=== PATIENT | male | born 1965 | race African-American/Black ===

== ENCOUNTER 2019-01-17 13:46 | Inpatient (IN) | payer MEDICAID ==
[~2019-01-17] VITALS: Ht 182.9 cm; Wt 78.0 kg
--- NOTE | 2019-01-17 13:57 | NUR ---
EKG IN PROGRESS.
--- NOTE | 2019-01-17 14:12 | NUR ---
PLACED IN BED 11 FOR EVAL.
--- NOTE | 2019-01-17 14:12 | NUR ---
MULTIPLE ATTEMPTS MADE TO CHECK PT'S BS WITH MULTIPLE ACCUCHECK MACHINES CONTINUES TO READ "BAD SAMPLE".
--- NOTE | 2019-01-17 14:20 | NUR ---
PT RESTING IN BED, AAOX4 WITH C/O 10/10 GENERALIZED ABD PAIN X 2 WEEKS S/P UNCONTROLLED HICCUPING. PT WITH HX OF UNCONTROLLED HICCUPING. PER SISTER AT BEDSIDE, PT WAS SEEN AT HER CLINIC AND RECEIVED A MUSCULE RELAXER INJECTION THAT HELDED FOR A FEW DAY BUT MADE PT CONSTIPATED SO PT HAD TO TAKE OTC STOOL SOFTNERS TO ASSIST WITH BM. PT DENIES ANY FEVER/CHILLS, RESP ILLNESS OR URINARY PROBLEMS AT THIS TIME. PT ON MONITOR.
--- NOTE | 2019-01-17 14:45 | NUR ---
PT WITH EPISODE OF N/V WITH NOTED COFFEE GROUND EMESIS.
[2019-01-17 15:10] LABS: CARBON DIOXIDE 32.4 mmol/L (21-32); CHLORIDE SERUM 89 mmol/L (98-107); CREATININE SERUM 1.1 mg/dL (0.7-1.3); GFR1 > 60 mL/min; GLUCOSE SERUM 217 mg/dL (74-106); POTASSIUM SERUM 3.3 mmol/L (3.5-5.1); SODIUM SERUM 130 mmol/L (136-145)
[2019-01-17 15:19] LABS: ALBUMIN 3.8 g/dL (3.4-5.0); ALKALINE PHOSPHATASE 124 U/L (46-116); BILIRUBIN TOTAL 1.54 mg/dL (0.20-1.00); TOTAL PROTEIN, SERUM 7.6 g/dL (6.4-8.2)
[2019-01-17 15:34] LABS: RED CELL DISTRIBUTION WIDTH 16.9 % (11.5-14.5)
[2019-01-17 15:36] LABS: PLATELET COUNT 15 x10^3mcL (130-400)
--- NOTE | 2019-01-17 15:40 | NUR ---
LACTIC ACID 4.9 , DR BORREGO AWARE.
--- NOTE | 2019-01-17 15:41 | NUR ---
US AT BEDSIDE FOR EXAM.
[2019-01-17 15:47] LABS: ALT/SGPT 6001 U/L (16-63); AST/SGOT 4850 U/L (15-37)
[2019-01-17 16:01] LABS: BAND NEUTROPHIL 2 % (0-10); MONOCYTE 4 % (0-7); SEGMENTED NEUTROPHILS 79 % (37-75)
[2019-01-17 16:03] LABS: rbc morphology (normal/abnorm) ABNORMAL (NORMAL)
[2019-01-17 16:04] LABS: PLATELET MORPHOLOGY PLATELETS DECREASED; ovalocyte/elliptocyte 1+
--- NOTE | 2019-01-17 16:16 | NUR ---
PT STILL WITH C/O 10/10 PAIN AND PERSISTANT N/V. DR BORREGO MADE AWARE. SISTER AT BEDSIDE.
--- NOTE | 2019-01-17 17:18 | NUR ---
PT RESTING IN BED WITH EYES CLOSED AND BREATHS EVEN AND UNLABORED WITH NO SIGNS OF DISTRESS AT THIS TIME. SISTER AT BEDSIDE.
[2019-01-17] MEDS ORDERED: BACLOFEN20 MG PO (17:52)
[2019-01-17] MEDS ORDERED: METFORMIN HYDR500 M1 PO (17:53)
[2019-01-17] MEDS ORDERED: LIPITOR40 MG PO (17:53)
[2019-01-17] MEDS ORDERED: ASPIR 8181 MG PO (17:54)
[2019-01-17] MEDS ORDERED: HCTZ/LISINOPRIL1 TAB PO (17:54)
[2019-01-17 18:03] LABS: MAGNESIUM 2.3 mg/dL (1.8-2.4); PHOSPHOROUS 2.9 mg/dL (2.5-4.9)
[2019-01-17 18:06] LABS: T3 TOTAL 0.69 ng/mL
[2019-01-17 18:12] LABS: FREE T4 1.28 ng/dL (0.76-1.46); FREE THYROXINE INDEX 3.4 ug/dL (1.4-4.5); T4(THYROXINE) 9.7 ug/dL (4.7-13.3)
--- NOTE | 2019-01-17 18:27 | NUR ---
REPORT CALLED TO ICU NURSE MARV
[2019-01-17 18:29] LABS: UA SPECIFIC GRAVITY 1.025 (1.005-1.035); microscopic required? YES; urine erythrocyte NEGATIVE (NEGATIVE)
--- NOTE | 2019-01-17 18:35 | NUR ---
PATIENT ARRIVED AT THIS TIME. PATIENT IS ALERT AND ORIENTED X 4. PATIENT IS ON ROOM AIR, BREATHING ADEQUATELY WITH NO DISTRESS NOTED. PATIENTS VITALS: B/P: 179/102 MAP: 136, HR: 95, RR: 14 TEMP: 98.2. IV ACCESS NOTED TO L HAND. SKIN INTACT. SISTER AT BEDSIDE. ORIENTED PATIENT TO ROOM, CALL LIGHT WITHIN REACH, WILL ENDORSE ADMIT TO ONCOMING NURSE.
[2019-01-17 18:42] LABS: AMPHETAMINE QUAL UR NONE DETECTED (See below)
--- NOTE | 2019-01-17 18:57 | NUR ---
NOTICED THAT PLTS WHERE ORDERED FOR PATIENT AT 1543. CALLED ER NURSE, EMIL TO VERIFY IF GIVEN. PER EMIL THEY WERE NOT GIVEN EMIL STS THAT SHE WAS NOT THE NURSE IN CHARGE. PER SANTOS STEIN SHE SPOKE WITH SANTOS ROMERO, AND NICK SAID THAT SHE "FORGOT". WILL ENDORSE TO NIGHT NURSE.
--- NOTE | 2019-01-17 19:07 | NUR ---
REPORT GIVEN TO SANTOS HULL. ALL QUESTIONS ANSWERED, AND NOTIFIED OF PATIENTS PLTS ORDERED AND READY IN BLOOD BANK.
--- NOTE | 2019-01-17 19:10 | NUR ---
RECEIVED PT AND REPORT FROM KOKI GRAHAM. PT IN NO ACUTE DISTRESS, ATTACHED TO FULL NUTRITION INSTRUCTOR AND CONTINUOUS PULSE OXMETRY. DR. KEN AT [facility] FOR ASSESSMENT AND SPEAKING WITH PATIENT ON PLAN OF CARE. SEE NURSING ASSESSMENT AND ADMISSION FOR MORE DETAILS. BED AT LOWEST SETTING, CALL LIGHT WITHIN REACH, HOB ELEVATED 45 DEGREES PER PT COMFORT. WILL CONT TO MONITOR.
[2019-01-17 19:11] VITALS: BP 179/102
--- NOTE | 2019-01-17 19:55 | NUR ---
ONE UNIT OF PLATELET INITIATED AT THIS TIME, VERIFIED BY 2 RN'S. PRE VITALS TEMP 98.0, PULSE 97, NIBP 168/97, RESP 22, PO2 95%. PT EDUCATED ON S/S OF ADVERSE BLOOD TRANSFUSION REACTION AND TO NOTIFY NURSING TEAM OF ANY COMPLICATIONS. PT VERBALIZES UNDERSTANDING.
--- NOTE | 2019-01-17 20:10 | NUR ---
15 MIN PLATLET INFUSION VITALS: TEMP 98.1, PULSE 100, NIBP 151/84, RESP 24, PO2 95%. PT HAS NO S/S OF ANY BLOOD TRANSFUSION REACTION AND DENIES ANY COMPLICATIONS. TITRATED PER HOSPITAL PROTOCOL.
--- NOTE | 2019-01-17 20:45 | NUR ---
PER DR. KEN, CONTACT POISIN CONTROL DUE TO PT'S REPORT OF TAKING TYLENOL (ACETAMINOPHEN) 1G EVERY 2 HOURS THESE LAST 2 DAYS FOR PT'S ABD PAIN. PT REPORTS TAKING LAST DOSE OF TYLENOL YESTERDAY AROUND 2-3 AM. UPDATED POISIN CONTROL RAKER BUFFING WHEEL CAROL ON PT'S LFT, LABS, AND INR AND SYMPTOMS OF N/V/D AND ABD PAIN. PER CAROL RECOMMENDATION, INITIATE LOADING DOSE OF MUCOMYST 140 MG/KG AND 70 MG/KG FOR MAINTENANCE DOSE, AND GOAL IS LFT TO NO LONGER RISE AND INR'S TO REACH LESS THAN 2, AND TYLENOL LAB IS NEGATIVE. ALL INFORMATION RELAYED TO DR. KEN. PER DR. KEN, HE WILL ORDER MUCOMYST.
--- NOTE | 2019-01-17 21:18 | NUR ---
LAB CALLED, ACETAMINOPHEN LAB IS 338.6. DR. KEN MADE AWARE VIA TELEPHONE. PER DR. KEN HE WILL INFORM PHARMACY TO MIX MUCOMYST IV
--- NOTE | 2019-01-17 21:46 | NUR ---
IV INITIATED TO RIGHT HAND 22G, PORT PATENT, +BLOOD RETURN, NO S/S OF INFILTRATION, DRESSING CDI. SALINE LOCKED.
--- NOTE | 2019-01-17 21:50 | NUR ---
ACETYLCYSTEINE, MUCOMYST IV SOLUTION INITATED AT THIS TIME MIXED BY PHARMACY, AND ADMINISTERED PER EMAR @ 250 CC/HR.
--- NOTE | 2019-01-17 22:18 | NUR ---
2 LPM NASAL CANNULA PLACED ON PATIENT, PT SATURATING @ 90%. PT DENIES ANY SOB OR TROUBLE BREATHING. PT RR=29-32. PT NOW SATURATING @ 96%. WILL CONT TO CLOSELY MONITOR.
--- NOTE | 2019-01-17 22:35 | NUR ---
SLATE SPLITTERAMANDEEP BAKER AT BEDSIDE FOR BLOOD DRAW.
--- NOTE | 2019-01-17 23:27 | NUR ---
PLATELET INFUSION FINISHED AT THIS TIME. TEMP 98.1 PULSE 110, NIBP 101/61, RESP 29, PO2 96%. PT SHOWS NO S/S OF ANY ADVERSE BLOOD TRANSFUSION REACTION.
--- NOTE | 2019-01-17 23:35 | NUR ---
ACYTELCYSTEIN GTT MAINTENANCE DOSE INITATED AT THIS TIME PER EMAR @ 125 ML/HR.
--- NOTE | 2019-01-17 23:40 | NUR ---
SPOKE WITH ALDO FROM POISION CONTROL, UPDATED HIM ON PT'S STATUS AND MUCOMYST IV'S TAHT ARE ORDERED PER EMAR. PER ALDO HE WILL CALL IN MORNING TO FOLLOW UP. NO RECOMMENDATIONS AT THIS TIME.
--- NOTE | 2019-01-17 23:50 | NUR ---
DR. CHRISTIANSON MADE AWARE OF PT'S TROPONIN OF 0.508.
[2019-01-17 23:53] VITALS: BP 104/57
[2019-01-18] VITALS (8 sets, daily range): BP systolic 122–140; BP diastolic 62–82
--- NOTE | 2019-01-18 03:19 | NUR ---
MUCOMYST GTT MAINTENANCE DOSE INITATED @ 62.5 ML/HR.
--- NOTE | 2019-01-18 05:01 | NUR ---
PLODDER OPERATOR OLIVIA AT BEDSIDE FOR AM BLOOD DRAW.
[2019-01-18 05:22] LABS: BASOPHIL % 0.3 % (0-2)
[2019-01-18 05:32] LABS: PLATELET COUNT 24 x10^3mcL (130-400); RED CELL DISTRIBUTION WIDTH 17.3 % (11.5-14.5)
--- NOTE | 2019-01-18 06:08 | NUR ---
DR. ALBRIGHT AT [facility] FOR ASSESSMENT. SPEAKING WITH PT ON PLAN OF CARE
--- NOTE | 2019-01-18 06:09 | NUR ---
DR. ALBRIGHT MADE AWARE OF PTS ACETEMINOPHEN LAB OF 147.4 AT BEDSIDE.
[2019-01-18 06:10] LABS: ALBUMIN 2.5 g/dL (3.4-5.0); ALKALINE PHOSPHATASE 101 U/L (46-116); CALCIUM 7.1 mg/dL (8.5-10.1); CARBON DIOXIDE 27.8 mmol/L (21-32); CHLORIDE SERUM 99 mmol/L (98-107); CREATININE SERUM 1.2 mg/dL (0.7-1.3); GFR1 > 60 mL/min; GLUCOSE SERUM 136 mg/dL (74-106); POTASSIUM SERUM 3.1 mmol/L (3.5-5.1); SODIUM SERUM 135 mmol/L (136-145); TOTAL PROTEIN, SERUM 5.3 g/dL (6.4-8.2)
[2019-01-18 06:16] LABS: MAGNESIUM 1.9 mg/dL (1.8-2.4); PHOSPHOROUS 1.6 mg/dL (2.5-4.9)
--- NOTE | 2019-01-18 06:19 | NUR ---
LAB CALLED, TROPININ 2.325, DR. ALBRIGHT MADE AWARE OF PTS TRENDING LAB. PER DR. ALBRIGHT SHE WILL ORDER STAT EKG AND CONSULT DR. BARAKAT.
--- NOTE | 2019-01-18 06:20 | NUR ---
PT IN NO ACUTE DSITRESS, DENIES SOB. AWAKE/ALERT AT THIS TIME. PT DENIES ANY CHEST PAIN OR PAIN WHEN ASKED AT THIS TIME. PT DENIES ANY N/V. LEFT HAND AND RIGHT HAND IV'S PATENT, NO S/S OF INFILTRATION, DRESSING CDI. MUCOMYST GTT INFUSING @ 62.5 ML/HR AND NS INFUSING @ 100 ML/HR. WILL CONT TO MONITOR. BED AT LOWEST SETTING, CALL LIGHT WITHIN REACH, HOB ELEVATED 30 DEGREES.
--- NOTE | 2019-01-18 06:25 | NUR ---
PT REPORTING HE DOES NOT WANT THE NASAL CANNULA ON. PT EDUCATED ON OXYGEN THERAPY. REMOVED NASAL CANNULA AT THIS TIME. PT NOW SATURATING @ 95%, DENIES SOB.
[2019-01-18 06:28] LABS: AST/SGOT 5126 U/L (15-37)
[2019-01-18 06:29] LABS: ALT/SGPT 7177 U/L (16-63)
--- NOTE | 2019-01-18 06:56 | NUR ---
DR. ALBRIGHT MADE AWARE OF PT'S POTASSIUM OF 3.1
--- NOTE | 2019-01-18 07:12 | NUR ---
GAVE REPORT TO SANTOS DANIELLE. UPDATES GIVEN, QUESTIONS ANSWERED. ENDORSED CARE.
--- NOTE | 2019-01-18 07:15 | NUR ---
RC'D PT RESTING IN BED WITH NO APPARENT S/S OF DISTRESS. PT AWAKE/ALERT. PT A/A/O/X4, SPEECH CLEAR AND APPROPRIATE. PT DENIES EMMANUEL/DIZZINESS. PT RESPONDS TO VERBAL COMMANDS AND ABLE TO MAKE NEEDS KNOWN. PUPILS 3MM AND BRISK BILAT. NO EENT DRAINAGE NOTED. RESP E/U. LUNGS CTA. PT ON RA, DENIES SOB. SPO2 94%, NO RESP DISTRESS NOTED. PT INT ON/OF 2L O2 VIA NC. SINUS TACH ON VITICULTURIST. PT DENIES CP. PALP PULSES, NO EDEMA NOTED CAP REFILL <3. SKIN WARM TO TOUCH AND CONSISTENT WITH ETHNICITY. NS INFUSING @100. ACETADOTE INFUSING @62.5ML/HR. PT AMBULATORY, BEDREST AT THIS TIME. CLEAR LIQUID DIET, PT DENIES N/V. ABDOMEN ROUND AND TENDER TO TOUCH. HYPOACTIVE BS. PT VOIDS FREELY, DENIES BURNING. SKIN W/D/I. BED IN LOWEST POSITION. WILL CONT TO MONITOR
--- NOTE | 2019-01-18 09:00 | NUR ---
AM MEDICATIONS GIVEN. PT TOLERATED WELL. RESP E/U. ON RA, DENIES SOB. PT DENIES EXCESSIVE PAIN AT THIS TIME. FAMILY PRESENT AT BEDSIDE. WILL CONT TO MONITOR
--- NOTE | 2019-01-18 09:30 | NUR ---
DR ROGERS PRESENT AT BEDSIDE DISCUSSING POC WITH PT. UPDATED ON PT CURRENT STATUS AT THIS TIME. PER DR ROGERS, HOLD LUNCH TRAY FOR EGD THIS AFTERNOON. PT VERBALIZED AGREEMENT, WILL OBTAIN CONSENTS AT THIS TIME. AWAITING NEW ORDERS AT THIS TIME
--- NOTE | 2019-01-18 09:45 | NUR ---
DR SMALLS AND RESIDENTS AT BEDSIDE FOR MORNING ROUNDS. PATIENT PROVIDED UPDATE AND POC DISCUSSED. ALL QUESTIONS AND CONCERNS ADDRESSED.
--- NOTE | 2019-01-18 09:45 | NUR ---
DR SMALLS AND MED TEAM PRESENT AT BEDSIDE DISCUSSING POC. UPDATED ON PTS CURRENT STATUS. AWAITING NEW ORDERS AT THIS TIME.
--- NOTE | 2019-01-18 10:44 | NUR ---
ATTEMPTED TO OBTAIN MEDICAL RECORDS FROM [facility] PER DR ROGERS'S ORDERS. PER VIRDEN, THEY DO NOT FAX INFORMATION MUST BE EMAILED. CASE MANAGEMENT CHARAN COOMBS CALLED AND PROVIDED WITH INFORMATION. CHRAAN COOMBS TO F/U
--- NOTE | 2019-01-18 11:27 | NUR ---
IV ATTEMPT FOR 20G IV UNSUCCESSFUL, PT REPORTS "I'M A REALLY HARD STICK. THEY TRIED IN ER ALOT". CT CALLED AND NOTIFIED UNSUCCESSFUL ATTEMPT. PER DINA, AWAITING NURSE AND WILL COME TO SEE PT
--- NOTE | 2019-01-18 11:30 | NUR ---
DR BARAKAT AT BEDSIDE DISCUSSING POC WITH PT. UPDATED ON PT CURRENT STATUS. ALL QUESTIONS AND CONCERNS ADDRESSED. NO NEW ORDERS AT THIS TIME
--- NOTE | 2019-01-18 12:04 | NUR ---
ADMINISTRATIVE SERVICES SPECIALIST PRESENT AT BEDSIDE FOR BLOOD DRAW
--- NOTE | 2019-01-18 12:20 | NUR ---
TEMP 99.9, COOLING MEASURES IN PLACE. WILL CONT TO MONITOR
[2019-01-18 12:48] LABS: BILIRUBIN DIRECT 1.17 mg/dL (0.0-0.2); BILIRUBIN TOTAL 2.1 mg/dL (0.20-1.00)
[2019-01-18 12:49] LABS: ALBUMIN 2.5 g/dL (3.4-5.0); TOTAL PROTEIN, SERUM 5.2 g/dL (6.4-8.2)
--- NOTE | 2019-01-18 13:15 | NUR ---
RECEIVED TELEPHONE CALL FROM POISON CONTROL. PATIENT UPDATE PROVIDED INCLUDING MOST RECENT ACETAMINPOHEN LEVEL AT 90.6. CONTINUE WITH CARE PER POISON CONTROL AND THEY WILL RETURN CALL TO UNIT AT A LATER TIME.
--- NOTE | 2019-01-18 13:26 | NUR ---
PT HAD LOOSE DARK BROWN BM. PT CLEANED AND ASSISTED BACK TO BED
--- NOTE | 2019-01-18 13:30 | NUR ---
DR ROGERS AND TEAM PRESENT AT BEDSIDE FOR NEGD AT THIS TIME. WILL CONT TO XENIA
--- NOTE | 2019-01-18 14:12 | NUR ---
Discount pharmacy card and list to low cost medical clinics given to patient by Osvaldo Hernandez.
[2019-01-18 14:43] LABS: PLATELET COUNT 39 x10^3mcL (130-400)
[2019-01-18 14:44] LABS: BASOPHIL % 0.2 % (0-2); PATH REVIEW for HEMA NO
--- NOTE | 2019-01-18 15:01 | NUR ---
LABETALOL 5MG IVP GIVEN PER DR ROGERS VERBAL ORDER FOR BP/HR. WILL CONT TO MONITOR VS CLOSELY
--- NOTE | 2019-01-18 18:26 | NUR ---
PT RESTING IN BED WITH NO APPARENT S/S OF DISTRESS. PT ON 2L O2 VIA NC, DENIES SOB. SPO2 98%. NO RESP DISTRESS NOTED. SINUS TACH ON MONITOR. PT DENIES CP. PT AMBULTORY TO BSC. PT TOLERATED CLEAR LIQUID DIET. DENIES N/V. IVS PATENT AND INTACT. NS INFUSING @ 100. PROTONIX INFUSING @10. ACETADOTE INFUSING @ 62.5. BED IN LOWEST POSITION. CALL LIGHT IN REACH. WILL CONT TO MONITOR
[2019-01-18 18:57] LABS: BASOPHIL % 0.3 % (0-2)
[2019-01-18 19:01] LABS: RED CELL DISTRIBUTION WIDTH 17.1 % (11.5-14.5)
[2019-01-18 19:06] LABS: PLATELET COUNT 46 x10^3mcL (130-400)
[2019-01-18 19:32] LABS: BILIRUBIN DIRECT 1.34 mg/dL (0.0-0.2); BILIRUBIN TOTAL 2.26 mg/dL (0.20-1.00)
[2019-01-18 19:54] LABS: ALBUMIN 2.8 g/dL (3.4-5.0); TOTAL PROTEIN, SERUM 5.9 g/dL (6.4-8.2)
--- NOTE | 2019-01-18 20:00 | NUR ---
PT AWAKE AND VERBALLY REPONSIVE. ABLE TO MAKE NEEDS KNOWN. SKIN WARM AND DRY TO TOUCH WITH 2+ EDEMAON BUE/NLE. SCD IN PLACE TO BLE TOLERATING WELL. PT HAS EPISODES OF LOOSE BOWEL MOVEMENT X1, PARTIAL BATH GIVEN, COMPLETE LINEN CHANGE, KEPT CLEAN AND DRY. IV ACCESS TO LEFT HAND ACCIDENTALLY PULLEDOUT BY PATIENT WITH MODERATE ACTIVE BLEEDING NOTED AT THE SITE. PRESSURE DRESSING APPLIED.IV ACCESS TO RAC INTACT AND PATENT.IVF NS AT 100ML/HR , PROTONIX DRIP IN PROGRESS VIA PERIPHERAL LINE AT THE [facility] TOLERATING WELL. ACETYLCYS DRIP TOTAL AMOUNT 1L COMPLETED. PT DENIES PAIN AT THIS TIME. WILL CONTINUE TO MONITOR.
[2019-01-19] VITALS (10 sets, daily range): BP systolic 142–186; BP diastolic 60–104
--- NOTE | 2019-01-19 00:24 | NUR ---
EYES CLOSED , APPARENTLY NO S/S OF PAIN/DISCOMOFRT.NO FACIAL GRIMACNG NOTED. VONTINUES ON PROTOMIX SRIP ORDERED VIA PERIPHERAL LINE AT THE RAC TOLERATING WELL.
[2019-01-19 00:53] LABS: ALBUMIN 2.5 g/dL (3.4-5.0); BILIRUBIN DIRECT 0.98 mg/dL (0.0-0.2); BILIRUBIN TOTAL 1.6 mg/dL (0.20-1.00); TOTAL PROTEIN, SERUM 5.4 g/dL (6.4-8.2)
--- NOTE | 2019-01-19 03:09 | NUR ---
ASSISTED TO BEDSIDE COMMODE, HAD 1 LOOSE STOOLBOWEL MOVEMENT MOSEATE AMOUNT. KEPT CLEAN AND DRY.
--- NOTE | 2019-01-19 04:20 | NUR ---
PAGED DR. SMALLS FOR CONSENT TO TRANSFER PATIENT UPSTAIRS. AWAITING CALL BACK.
--- NOTE | 2019-01-19 04:21 | NUR ---
LAB AT BEDSIDE FOR BLOOD DRAW.
--- NOTE | 2019-01-19 05:00 | NUR ---
CW=[id number], URV=[id number], DR THUY GARVIN GAVE ORDER AND NOTED.HYDRALAZIN 10MG IVP PRN MEDICATION.WILL REASSESS PT.
[2019-01-19 05:16] LABS: PLATELET COUNT 48 x10^3mcL (130-400)
[2019-01-19 05:17] LABS: CALCIUM 7.3 mg/dL (8.5-10.1); CARBON DIOXIDE 27.2 mmol/L (21-32); CHLORIDE SERUM 102 mmol/L (98-107); CREATININE SERUM 1.3 mg/dL (0.7-1.3); GFR1 > 60 mL/min; GLUCOSE SERUM 135 mg/dL (74-106); MAGNESIUM 1.9 mg/dL (1.8-2.4); POTASSIUM SERUM 3.4 mmol/L (3.5-5.1); SODIUM SERUM 137 mmol/L (136-145)
--- NOTE | 2019-01-19 05:30 | NUR ---
PT FOUND STANDING UP HOLDING A MARJ TO HIS ARM STATING TELL THE VOICES TO STOP TALKING TO HIM, AND IF I HEAR THEM. HE CONTINUED TO STATE THAT HE HEARD THE VOICES OF HIS SISTER AND DAUGHTER. HE PULLED OUT HIS IV AND PULLED OFF ALL MONITORING LINES. HE HAD ALSO CALLED HIS SISTER STATING THAT HE WAS "GOING CRAZY". PT THEN SNAPPED OUT OF IT AND STARTED TO APOLOGIZE, SAYING THAT HE JUST HAD A PSYCHIATRIC BREAKDOWN. WILL CONTINUE TO CLOSELY MONITOR.
[2019-01-19 05:31] LABS: BAND NEUTROPHIL 1 % (0-10); MONOCYTE 1 % (0-7); SEGMENTED NEUTROPHILS 88 % (37-75)
[2019-01-19 05:33] LABS: PLATELET MORPHOLOGY PLATELETS DECREASED; acanthocyte (spur cell) 1+; rbc morphology (normal/abnorm) ABNORMAL (NORMAL)
[2019-01-19 05:38] LABS: BILIRUBIN TOTAL 1.7 mg/dL (0.20-1.00)
[2019-01-19 05:41] LABS: ALBUMIN 2.8 g/dL (3.4-5.0); TOTAL PROTEIN, SERUM 5.2 g/dL (6.4-8.2)
[2019-01-19 06:09] LABS: BILIRUBIN DIRECT 0.95 mg/dL (0.0-0.2)
--- NOTE | 2019-01-19 06:10 | NUR ---
NEW IV STARTED TO HIS LEFT HAND 22G. PATENT, DRESSING CDI.
--- NOTE | 2019-01-19 06:48 | NUR ---
PHARMACY NOTIFIED OF PYXIS OUT OF ZOSYN AND UNABLE TO MAKE DUE MEDICATION. PHARMACY NOTIFIED THAT DOSAGE TIME WILL BE CHANGED TO 0800.
--- NOTE | 2019-01-19 06:49 | NUR ---
NEW ORDER OF ZOSYN IV , NOT AVAILABLE AT THE [facility], PHAEMACY MADE AWARE,WILL CHANGE THE INITIAL DOSE T0 0800AM.WILL ENDORSE TO INCOMING SHIFT.
--- NOTE | 2019-01-19 06:58 | NUR ---
PT APPARENTLY GOT CONFUSED, PULLEDOUT IVACCESS X3, SISTER MADE AWARE, TAYOL SAYEEDMADE AWAREOF PT'S BEHAVIORAT THIS TIME.
--- NOTE | 2019-01-19 07:01 | NUR ---
DR ALBRIGHT ORDERED AMMONIA LEVEL, LAB REQUESTED.SISTER AT BEDSIDE AT THIS TIME. IV ACCESS PULLED OUT BY PATIENT, TRIED TO START NEW IV ACCESS, UNABLEWITH POOR VENOUS ACCESS.
--- NOTE | 2019-01-19 07:30 | NUR ---
RCD REPORT FROM SANTOS REESE. CHARGE NURSE TALKING WITH FAMILY MEMBERS. PATIENT AWAKE, NO DISTRESS NOTED AT THIS TIME. PER REPORT, PATIENT PULLED OUT SEVERAL IVs IN THE NIGHT, WAS CONFUSED. NO IV ACCESS AT THIS TIME. BED LOW, NEAR NURSE STATION, CALL LIGHT WITHIN REACH. WILL MONITOR.
--- NOTE | 2019-01-19 07:30 | NUR ---
SHIFT ASSESSMENT PERFORMED AND DOCUMENTED.
--- NOTE | 2019-01-19 08:15 | NUR ---
IV TO LEFT FOREARM PLACED PATIENT WITH NO IV ACCESS, 22 GAUGE, PATIENT TOLERATED WELL. FAMILY AT BEDSIDE. NS RESTARTED PER JUL.
--- NOTE | 2019-01-19 09:24 | NUR ---
PER DR ROGERS ORDER, IVF TITRATED FROM 100 ML/HR TO 10 ML/HR.
--- NOTE | 2019-01-19 11:39 | NUR ---
DR SOTO BEDSIDE TO ASSESS PATIENT. UPDATES PROVIDED BY NURSING.
--- NOTE | 2019-01-19 11:50 | NUR ---
SPOKE WITH ELSI FROM POISON CONTROL. PATIENT UPDATE PROVIDED. CONTINUE WITH CURRENT TREATMENT INCLUDING ACETAMINOPHEN LEVELS. ELSI STATED THAT SHE WILL RETURN PHONE CALL AND IDF ANY INFORMATION IS NEEDED TO CONTACT POISON CONTROL .
--- NOTE | 2019-01-19 12:11 | NUR ---
SHIFT ASSESSMENT PERFORMED AND DOCUMENTED. NS 10 ML/HR TO LFA WITHOUT COMPLICATIONS. MOTHER AT BEDSIDE. WILL MONITOR. BED LOW, CALL LIGHT WITHIN REACH.
[2019-01-19 12:25] LABS: BILIRUBIN DIRECT 1.24 mg/dL (0.0-0.2); BILIRUBIN TOTAL 1.7 mg/dL (0.20-1.00)
[2019-01-19 12:42] LABS: ALBUMIN 2.6 g/dL (3.4-5.0); TOTAL PROTEIN, SERUM 5.2 g/dL (6.4-8.2)
--- NOTE | 2019-01-19 13:24 | NUR ---
1. Recommend CCHO (full liquid diet). Discussed recommendations with Dr. Mcgill
--- NOTE | 2019-01-19 13:24 | NUR ---
Initial Nutrition Assessment: IC03 VÍCTOR BALBUENA HEMON IA HR Dx: Septic shock, acute cholecystitis PMHx: DM, HTN PSHx: None Labs: K 3.4L, ALB 2.8L, AST 3453H, ALT 7302H, P 2.0L, A1C 7.3H, Ammonia 62H, HGB 10.8L Meds: Ativan, cephulac, D 50%, K-Phos neutral, Lopressor, Zofran, zosyn Diet: Full liquid PO Intake: (01/18) breakfast 40%, dinner 60% Ht: 182.88 cm (72") Wt: 78.1 kg (172#) BMI: 23.4 kg/m2 Bed scale: 78.1 kg IBW: 178# (81 kg) %IBW: 97 UBW: 172-175# Age: 53/M Food Allergies: NKFA Skin: intact Dominick: 19 Edema: +2 BUE/BLE GI: Last BM: 01/19 Per H&P, Pt is a 53 Yo male with PMH of DM and HTN who came to the ED from home for worsening abdominal pain and eructation for [address] weeks[address] RDN Visit (01/19): Patient was alert and oriented but was having lot of hiccups that was making him feel nauseated. Patient said that he ate most of his breakfast this morning. Patient was very uncomfortable because of hiccups. Problem with: N/V/D/C: nausea Problems with: Chewing/Swallowing: none Current appetite: good Recent wt change: lost some weight bit does not know how many lbs %wt change: n/a Vitamin/Supplement use: no Special diet at home: regular Physical activity: none Nutrition education given: not provided as patient was feeling nauseated and was having hiccups. Food-drug interactions: none Education given: n/a Estimated Nutritional Needs Based on current body weight 78.1 kg Energy: 4092-1592 kcal/d (25-30 kcal/kg) Protein: 94-109 g/d (1.2-1.4g/kg)- sepsis Fluid: 3001-2455 ml/d (1 ml/kcal) or per doctor Nutrition Diagnosis 1. Inadequate oral intake related to nausea as evidenced by documented PO <75%. 2. Impaired nutrient utilization related to hepatic/gall bladder dysfunction as evidenced by ammonia: 62 Intervention 1. Recommend CCHO (full liquid diet). Discussed recommendations with Dr. Mcgill Monitor/Evaluate Goal: PO intake at least 75% of estimated needs Monitor: PO intake, Labs, GI function F/U in 2-3 days as high risk 01/21-
--- NOTE | 2019-01-19 14:57 | NUR ---
ASSISTED PATIENT TO BED SIDE COMMODE AND THEN PATIENT ASSISTED BACK TO BED, NO DISTRESS NOTED. NO OTHER NEEDS AT THIS TIME.WILL MONITOR.
--- NOTE | 2019-01-19 15:45 | NUR ---
PATIENT HAD BM BEFORE ABLE TO GET TO BEDSIDE COMMODE. ASSISTED PATIENT TO BSC. PROVIDED BED BATH, CLEAN LINENS AND GOWN. ASSISTED PATIENT BACK TO BED, POSITION OF COMFORT. NO OTHER NEEDS AT THIS TIME. WILL MONITOR.
--- NOTE | 2019-01-19 17:12 | NUR ---
SPOKE WITH DR. ALBRIGHT REGARDING PATIENT'S BP WHICH HAS HAD SEVERAL READINGS ABOVE 170 SYSTOLIC, CURRENTLY 161 SYSTOLIC. ALSO, PATIENT COMPLAINING OF 7/10 PAIN TO RIGHT RIBS. NO PAIN MEDICATIONS AVAILABLE ON JUL. PROVIDED PATIENT WITH ICE PACK. TO REVIEW PATIENT'S CHART AND ENTER ORDERS APPROPRIATE. WILL AWAIT ORDERS.
--- NOTE | 2019-01-19 17:22 | NUR ---
SHIFT ASSESSMENT PERFORMED AND DOCUMENTED. PATIENT WITH 7/10 ABDOMINAL PAIN, DR. RIDER AWARE. PROVIDED WITH ICE PACK. NS 10 ML/HR TO LFA WITHOUT COMPLICATIONS. FAMILY AT BEDSIDE. CALL LIGHT WITHIN REACH. BED LOW. WILL MONITOR.
--- NOTE | 2019-01-19 18:39 | NUR ---
TORADOL GIVEN PER MAR FOR PATIENT'S 6/10 PAIN TO RIBS AND ABDOMEN, HE FEELS IT IS MUSCULOSKELETAL TYPE OF PAIN. NO OTHER NEEDS AT THIS TIME. WILL MONITOR.
--- NOTE | 2019-01-19 19:03 | NUR ---
REPORT GIVEN TO SANTOS MCNALLY. PATIENT REPORTS PAIN IMPROVED TO RIBS AFTER TORADOL. PATIENT IN NO DISTRESS, NO NEEDS AT THIS TIME. NS 10 ML/HR TO LFA. BED LOW, CALL LIGHT WITHIN REACH. FAMILY AT BEDSIDE. CARE ENDORSED.
--- NOTE | 2019-01-19 19:53 | NUR ---
RECEIVED REPORT FROM SANTOS RODRIGUEZ. PT IS ALERT AND ORIENTED X4. PUPILS REACTIVE TO LIGHT. PT IS BREATHING E/U ON 2L NC. LUNG SOUNDS CLEAR TO BILATERAL UPPER LOBES, DIMINISHED TO BILATERAL LOWER LOBES. S1 S2 HEART SOUNDS AUSCULTATED. PULSES MODERATE X4. CAP REFILL <3 SECS X4. SKIN IS WARM AND CONSISTENT WITH ETHNICITY. PERIPHERAL IV TO LEFT FA PATENT, DRESSING CDI. NS KVO. ABD IS SOFT AND ROUNDED WITH ACTIVE BOWEL SOUNDS X4Q. PT VOIDS FREELY USING URINAL. ALL QUESTIONS AND CONCERNS ANSWERED.
--- NOTE | 2019-01-19 21:50 | NUR ---
ASSISTED PATIENT TO BEDSIDE COMMODE. HAD LIQUID BM.
[2019-01-20 05:29] LABS: RED CELL DISTRIBUTION WIDTH 17.3 % (11.5-14.5)
[2019-01-20 05:30] LABS: BASOPHIL % 0 % (0-2); PLATELET COUNT 54 x10^3mcL (130-400)
[2019-01-20 05:48] LABS: BILIRUBIN DIRECT 1.32 mg/dL (0.0-0.2); BILIRUBIN TOTAL 2.1 mg/dL (0.20-1.00)
[2019-01-20 05:51] LABS: ALBUMIN 2.6 g/dL (3.4-5.0); TOTAL PROTEIN, SERUM 5.3 g/dL (6.4-8.2)
--- NOTE | 2019-01-20 06:15 | NUR ---
DR. ALBRIGHT AT BEDSIDE FOR UPDATES. ALL QUESTIONS AND CONCERNS ANSWERED.
[2019-01-20 06:49] LABS: CALCIUM 7.3 mg/dL (8.5-10.1); CARBON DIOXIDE 28.6 mmol/L (21-32); CREATININE SERUM 1.4 mg/dL (0.7-1.3); POTASSIUM SERUM 3.5 mmol/L (3.5-5.1)
--- NOTE | 2019-01-20 07:10 | NUR ---
GAVE REPORT TO RELIEF NURSE. ALL QUESTIONS AND CONCERNS ANSWERED.
--- NOTE | 2019-01-20 07:20 | NUR ---
RECEIVED PT FROM СВЕТЛАНА RN. PT RESTING IN BED WITH BOTH EYES CLOSED. NO S/S OF ACUTE DISTRESS. NO SOB ON ROOM AIR. NO COMPLAINT OF CHEST PAIN. SPEECH CLEAR. FACE SYMMETRICAL. NO N/V. NO DIZZINESS. C/O INTERMITTENT HICCUPS. REPORTS INTEMRITTENT TOLERABLE RUQ ABD. PAIN WITH PALPATION. DECLINES TO PAIN MEDICATION. NO FEVER. NO CHILLS. NO EMMANUEL. PERRLA, BRISK, SIZE 3. IV WNL TO LFA, PATENT AND FLUSHES WELL. IV FLUIDS FLOWING. SITE WNL. PT CALM/COOPERATIVE. C/O FREQUENT BOWEL MOVEMENT, LOOSE/BROWN. NSR ON TELE. BED IN LOW POSITION. CALL LIGHT WITHIN REACH. INSTRUCTED TO USE CALL LIGHT TO CALL FOR ASSISTANCE PRN. VERBALIZED UNDERSTANDING. WILL CONTINUE TO MONITOR.
[2019-01-20 08:00] VITALS: BP 174/105
[2019-01-20 09:01] VITALS: Ht 182.9 cm; Wt 78.0 kg
--- NOTE | 2019-01-20 09:08 | NUR ---
BP ELEVATED, 185/84. DR. ALBRIGHT AWARE. NO COMPLAINT OF CP, NO PALPITATION, NO EMMANUEL. NO DIZZINESS. NO S/S OF ACUTE DISTRESS. PO BP MED GIVEN. O2 SAT 95% ON ROOM AIR. DENIES SOB. BED IN LOW POSITION. CALL LIGHT WITHIN REACH. WILL CONTINUE TO MONITOR.
[2019-01-20 09:40] VITALS: BP 154/80
--- NOTE | 2019-01-20 09:40 | NUR ---
DR. SMALLS AND RESIDENTS AT BEDSIDE DISCUSSING POC WITH PT. CONCERNS/QUESTIONS ANSWERED BY PHYSICIANS. PT AA/OX4. NO HICCUPS AT THIS TIME. NO SOB ON ROOM AIR. NO CHEST PAIN. CALM/COOPERATIVE. BP DECREASING, BP 154/80, HR 84. O2 SAT 94% ON ROOM AIR. BED IN LOW POSITION. CALL LIGHT WITHIN REACH. WILL CONTINUE TO MONITOR.
--- NOTE | 2019-01-20 09:55 | NUR ---
PATIENT ROUNDS WITH DR. SMALLS AND RESIDENTS. CHARGE NURSE AND PRIMARY NURSE AT BEDSIDE. UPDATES PROVIDED AND POC DISCUSSED. WILL CONTINUE TO MONITOR.
--- NOTE | 2019-01-20 11:00 | NUR ---
RECEIVED CALL FROM POISON CONTROL, SPOKE WITH ANGY AT , PER ANGY, CASE CLOSED.
[2019-01-20 12:19] VITALS: BP 165/94; BP 178/101
--- NOTE | 2019-01-20 12:45 | NUR ---
PT BEING TRANSFERRED TO [facility]. PT AA/OX4. NO COMPLAINT OF PAIN. NO SOB ON ROOM AIR. O2 SAT 94% ON ROOM AIR. VOIDS FREELY WITH URINAL. OUTPUT 400CC, CLEAR/YELLOW. HAD 5 BMS THIS SHIFT, LOOSE/GREEN. NO N/V. NO ABD. PAIN. TOLERATING CARDIAC DIET WELL. NO HICCUPS AT THIS TIME. PT CALM/COOPERATIVE. NO CHEST PAIN. BP 167/96, HR 85, ENDORSED TO SANTOS SCHWAB. BELONGINGS WITH PATIENT. TAKEN BY WHEELCHAIR.
--- NOTE | 2019-01-20 14:10 | NUR ---
DUE MEDS GIVEN AND TOLERATED WELL. IV FLUIDS REPLENSISHED. B/P 144/104 (122), HR 89. INDERAL PO GIVEN. PT DENIES PAIN AT THIS TIME. AT BEDSIDE. CALL LIGHT WITHIN REACH.
--- NOTE | 2019-01-20 16:36 | NUR ---
BLOOD SUGAR 121, NO INSULIN INDICATED.
[2019-01-20 17:19] VITALS: BP 133/80
--- NOTE | 2019-01-20 17:58 | NUR ---
PT SITTING UP IN BED EATING DINNER. DUE MEDS GIVEN AND TOLERATED WELL. PT DENIES PAIN AND DISCOMFORT. MOTHER ASSISTING PT WITH DINNER AT BEDSIDE. NO DISTRESS NOTED. CALL LIGHT WITHIN REACH.
--- NOTE | 2019-01-20 18:36 | NUR ---
PT IS AAOX4. RESP EVEN AND UNLABORED. NO DISTRESS NOTED. PT DENIES PAIN AT THIS TIME. TELE [address] READING NSR WITH INTERMITTENT PVCS. PT DENIES CP AND PRESSURE. IV CATH TO LFA N/S LOCKED, SITE WNL. WILL ENDORSE ALL CARE TO NOC RN.
[2019-01-20 19:25] VITALS: BP 152/85
--- NOTE | 2019-01-20 19:25 | NUR ---
RECEIVED PT AWAKE ALERT AND VERBALLY RESPONSIVE.BREATHING EVEN BUT VERBALIZED "HARD TO BREATH.FINE CRACKLES ON AUSCULTATION.TOLERATING ROOMAIR @ 93%.CO 8/10 TO ACHING PAIN.INFORMED PT ,WILL CALL MD CAUSE THERE IS NO ORDER FOR PAIN MEDS.INFORMED NURSE HE HAS SOME LIVER ISSUES PROBABLY THAT'S WHY MD ARE CAUTIOUS IN GIVING HIM PAIN MEDS."DON'T BOTHER CALLING THEM,I'LL BE OK".DENIES CHESTPAIN.BP 152/85 MMHG,HR 89.ON TELE # 6 WITH READING NSR WITH PAC'S /PVC'S.WILL CONTINUE TO MONITOR.
--- NOTE | 2019-01-21 05:05 | NUR ---
PT SLEPT WELL ALL NIGHT.NO ASE NOTED FROM ZOSYN IV ATB.DENIES ABDOMINAL PAIN.NO N/V NOTED.AMBULATED TO BR AND WELL TOLERATED.ALL NEEDS MET.WILL CONTINUE TO MONITOR.
[2019-01-21 06:22] VITALS: BP 172/100
[2019-01-21 06:55] LABS: MAGNESIUM 1.5 mg/dL (1.8-2.4)
[2019-01-21 07:01] LABS: ALKALINE PHOSPHATASE 109 U/L (46-116); AST/SGOT 454 U/L (15-37); BILIRUBIN TOTAL 2.58 mg/dL (0.20-1.00); CARBON DIOXIDE 31.4 mmol/L (21-32); CHLORIDE SERUM 97 mmol/L (98-107); GFR1 > 60 mL/min; GLUCOSE SERUM 117 mg/dL (74-106); POTASSIUM SERUM 3.2 mmol/L (3.5-5.1); SODIUM SERUM 136 mmol/L (136-145)
[2019-01-21 07:27] LABS: ALBUMIN 2.7 g/dL (3.4-5.0); ALT/SGPT 3445 U/L (16-63); TOTAL PROTEIN, SERUM 5.9 g/dL (6.4-8.2)
[2019-01-21 07:29] LABS: BASOPHIL % 0 % (0-2); PLATELET COUNT 74 x10^3mcL (130-400); RED CELL DISTRIBUTION WIDTH 17.6 % (11.5-14.5)
--- NOTE | 2019-01-21 07:30 | NUR ---
PT IS AAOX4. RESP EVEN, SHALLOW AND UNLABORED. LUNG SOUNDS DIMINISHED BILATERALLY. ON R/A. NO COUGH OR SOB NOTED. TELE [address] READING NSR WITH OCCASIONAL PVCS. ABDOMEN SOFT, TENDER UPON PALPATION. BOWEL SOUNDS ACTIVE X4. IV N/S LOCKED TO LFA. SITE WNL. SKIN CDI. PT HAS R ARM TRACE EDEMA. PT DENIES PAIN AT THIS TIME. CALL LIGHT WITHIN REACH. BED IN LOWEST POSTION.
--- NOTE | 2019-01-21 09:37 | NUR ---
DR. SMALLS AND MEDICAL TEAM MET WITH PT AND DISCUSSED POC. PT IS STILL SUFFERING FROM HICCUPS AND HAS ABDOMINAL PAIN UPON PALPATION. THORAZINE AND REGLAN WILL BE ORDERED. PT TO HAVE POSSIBLE HIDA SCAN. PT AGREED WITH POC.
[2019-01-21 09:45] VITALS: BP 177/102
[2019-01-21 11:55] VITALS: BP 174/95
--- NOTE | 2019-01-21 12:18 | NUR ---
PT'S B/P 174/95 (112), HR 73. PAGED DR. FRAIRE TO REPORT, AWAITING CALL BACK. DUE MEDS GIVEN AND TOLERATED WELL. BS 159, 3 UNITS REG INSULIN GIVEN. PT DENIES PAIN AND DISCOMFORT. PT'S HAS BEEN HAVING C/O OF HICCUPS SINCE 829. PT'S HICCUPS HAVE RESOLVED AT THIS TIME. CALL LIGHT WITHIN REACH.
--- NOTE | 2019-01-21 12:48 | NUR ---
PAGED DR. FRAIRE SECOND TIME IN REGARDS TO PT'S B/P OF 174/95 (112). AWAITING CALL BACK.
--- NOTE | 2019-01-21 13:25 | NUR ---
INDERAL 40 MG GIVEN, PT'S B/P 174/95 (112). PT DENIES H/A AND DIZZINESS. WILL CONTINUE TO MONITOR. CALL LIGHT WITHIN REACH.
--- NOTE | 2019-01-21 14:17 | NUR ---
PT'S B/P DECREASED TO 131/72 (91), HR 75. PT DENIES PAIN OR DISCOMFORT. CALL LIGHT WITHIN REACH.
[2019-01-21 14:18] VITALS: BP 131/72
[2019-01-21 16:28] VITALS: BP 139/79
--- NOTE | 2019-01-21 17:07 | NUR ---
BLOOD SUGAR 147, NO INSULIN INDICATED PER RISS. DUE MEDS GIVEN AND TOLERATED WELL. PT DENIES PAIN AT THIS TIME. CALL LIGHT WITHIN REACH.
--- NOTE | 2019-01-21 18:21 | NUR ---
REPORTED TO DR. LARKIN THAT PT HAS ABDOMINAL PAIN 10/10. DR. LARKIN ORDERED AT ONE TIME DOSE OF TORADOL. TORADOL 15MG IVP GIVEN FOR MID ABDOMINAL PAIN 10/01O. EXTRA FLUIDS ENCOURAGED. CALL LIGHT WITHIN REACH.
--- NOTE | 2019-01-21 18:45 | NUR ---
PT IS VISITING WITH FAMILY AT THIS TIME. RESP EVEN AND UNLABORED. PT STATES ABDOMINAL PAIN IS SUBSIDING 08/10. TELE [address] READING NSR WITH INTERMITTENT PVCS. IV CATH TO LFA IN PLACE, SITE WNL. NO S/S OF INFECTION OR INFILTRATION NOTED. CALL LIGHT WITHIN REACH. BED IN LOWEST POSTION. WILL ENDORSE ALL CARE TO NOC RN.
[2019-01-21 19:45] VITALS: BP 130/77
--- NOTE | 2019-01-21 19:45 | NUR ---
RECEIVED REPORT FROM DAY SHIFT NURSE. PT IS A/O X4. FAMILY IS AT BEDSIDE. PT DENIES ANY PAIN AT THIS TIME. TELE #6 READING NSR WITH PVCS & PACS. BP 130/77 HR 77. DENIES CP. PULSES ARE MODERATE AND EQUAL ON ALL EXTREMITIES. THERE IS SLIGHT SWELLING ON BILATERAL UPPER ARMS WITH TRACE EDEMA. BREATHING IS EVEN AND UNLABORED ON RA SAT02 OF 97%. PT DENIES SOB AT THIS TIME. BS ARE ACTIVE IN ALL 4Q. ABD IS SOFT AND ROUND. LAST BM WAS TODAY WITH A SOFT CONSISTENCY. BRP. AMBULATORY. SKIN IS INTACT. IV TO THE RFA 22G. IV IS PATENT AND INTACT. NO REDNESS OR SWELLING. CALL LIGHT WITHIN REACH. BED IN LOWEST POSITION. WILL CONTINUE TO MONITOR.
--- NOTE | 2019-01-21 22:41 | NUR ---
ROUTINE MEDICATIONS WERE GIVEN AND TOLERATED WELL. PT IS LYING IN BED ON LAPTOP. BREATHING IS EVEN AND UNLABORED. NO RESP DISTRESS. PT DENIES PAIN AT THIS TIME. ENCOURAGED PT TO USE CALL LIGHT IF IN NEED OF ANY ASSISTANCE. BED IN LOWEST POSITION. WILL CONTINUE TO MONITOR.
--- NOTE | 2019-01-22 00:40 | NUR ---
PT IS HAVING HICCUPS. CALLED DR SLOAN CROCKETT. AWAITING ORDERS. WILL CONTINUE TO MONITOR.
--- NOTE | 2019-01-22 02:56 | NUR ---
PT IS RESTING IN BED WITH EYES CLOSED. NO HICCUPS NOTED. BREATHING IS EVEN AND UNLABORED. SO ACUTE DISTRESS NOTED. CALL LIGHT WITHIN REACH. BED IN LOWEST POSITION. WILL CONTINUE TO MONITOR.
--- NOTE | 2019-01-22 05:04 | NUR ---
PT SLEPT IN INTERVALS THROUGHOUT THE NIGHT. PT COMPLIED WITH NURSING CARE THROUGHOUT SHIFT WITH NO ACUTE EVENTS OVERNIGHT. COMFORT AND SAFETY MEASURES MAINTAINED. ALL NEEDS ASSESSED AND ATTENDED TO. WILL CONTINUE TO MONITOR AND ENDORSE CARE TO DAY SHIFT NURSE.
--- NOTE | 2019-01-22 05:57 | NUR ---
PTS SAO2 IN HIGH 80'S ON RA. PLACED PT ON 2L NC. SAO2 IMPROVED TO 92. WILL CONTINUE TO MONITOR.
[2019-01-22 06:07] VITALS: BP 125/69
[2019-01-22 07:13] LABS: ALKALINE PHOSPHATASE 119 U/L (46-116); AST/SGOT 199 U/L (15-37); BILIRUBIN TOTAL 1.86 mg/dL (0.20-1.00); CALCIUM 7.9 mg/dL (8.5-10.1); CARBON DIOXIDE 31.6 mmol/L (21-32); CHLORIDE SERUM 96 mmol/L (98-107); GFR1 > 60 mL/min; GLUCOSE SERUM 102 mg/dL (74-106); MAGNESIUM 1.7 mg/dL (1.8-2.4); PHOSPHOROUS 3.3 mg/dL (2.5-4.9); SODIUM SERUM 135 mmol/L (136-145); TOTAL PROTEIN, SERUM 6.3 g/dL (6.4-8.2)
[2019-01-22 07:28] LABS: ALBUMIN 2.7 g/dL (3.4-5.0); ALT/SGPT 2368 U/L (16-63)
--- NOTE | 2019-01-22 07:35 | NUR ---
PT IS AAOX4. DENIES H/A AND DIZZINESS. PT HAS BILATERAL UPPER BASES FINE CRACKLES NOT RELIEVED BY COUGH. LUNG SOUNDS DIMINISHED BILAERAL LOWER LOBES. ABDOMEN SOFT, TENDER UPON PALPATION, ROUND, NONDISTENDED. BOWELS ACTIVE X 4 QUADS. PT DENIES N/V/D AND CONSTIPATION. SKIN CDI. PT HAS R ARM TRACE EDEMA, ELEVATED ON PILLOW. IVF RUNNING AT 10ML, SITE WNL. PT DENIES PAIN AND DISCOMFORT AT THIS TIME. CALL LIGHT WITHIN REACH. BED IN LOWEST POSITION.
[2019-01-22 07:43] LABS: BASOPHIL % 0 % (0-2); PLATELET COUNT 89 x10^3mcL (130-400); RED CELL DISTRIBUTION WIDTH 17.9 % (11.5-14.5)
[2019-01-22 09:49] VITALS: BP 143/78
--- NOTE | 2019-01-22 10:10 | NUR ---
DR. SMALLS AND MEDICAL TEAM MET WITH PT AND DISCUSSED POC. PT IS TO HAVE LABS EVALUATED TOMORROW WITH POSSIBILITY OF D/C. PT AGREED WITH POC.
--- NOTE | 2019-01-22 10:46 | NUR ---
KCL 40MEQ IVP GIVEN FOR k+ =3.0, MAG 400MG PO GIVEN FOR MAG=1.7. PT DENIES PAIN AND DISCOMFORT. CALL LIGHT WITHIN REACH.
--- NOTE | 2019-01-22 11:54 | NUR ---
BLOOD SUGAR 238, 6 UNITS INSULIN REG GIVEN PER RISS. DUE MED GIVEN AND TOLERATED WELL. PT DENIES PAIN AT THIS TIME. CALL LIGHT WITHIN REACH.
[2019-01-22 13:25] VITALS: BP 147/87
--- NOTE | 2019-01-22 14:00 | NUR ---
1. Recommend continue with 2gm Na diet.
--- NOTE | 2019-01-22 14:00 | NUR ---
Follow-up Nutrition Assessment- Toan Saucedan 221T-B Dx: Septick shock, acure cholecystitis Labs: (01/22) Na:135L, K:3L, Ca:7.9L, T bili:1.86H, AST:199H, ALT:2368H, M.7L , WBC:3.4L, H/H:9.4/[id number] (01/19) Meds: Carafate, Cephulac, Ferrous sulfate, Humulin, Inderal, KCL, Norvasc, Phenergan, Prilosec, Regaln, Thorazine, Zofran, Zosyn Current Diet:2gm Na PO intake: (01/21) B:100% D:80% (01/23) B:100% Weights: (01/19) 78.1kg, 172# (01/22) 79.5kg Skin: intact Edema: RUE Last BM: 01/21 Per progress note 01/22, pt continues to have improved LFT's. Pendng dispo from GI. Elevated T bili likely 2/2 acute hepatic failure. During visit, pt was seen laying in bed. Pt reprots to having a good appeite, eating >75% of meals and no GI issues at this time. Will continue to monitor. Estimated Nutritional Needs based on actual body weight:78.1kg Energy: 1950-2340kcal/day (25-30kcal/kg) Protein: 94-109g/day (1.2-1.4g/kg for sepsis) Fluid:1950-2340ml/day (1ml/kcal) or per doctor Nutrition Diagnosis 1. Inadequate oral intake related to nausea as evidnenced by PO<75% (resolved) 2. Altered nutrition related labs relafed to acure hepatic failure as evidenced by elevated T bili:1.86, AST:199 and ALT:2368. Intervention 1. Recommend continue with 2gm Na diet. Monitor/Evaluate Previous goal: PO intake at least 75% of estimated needs (met) Goal: PO intake at least 75% of estimated needs and LFT's downtrending Monitor: PO intake, Labs, GI function F/U in 3-5 days as moderate risk:01/25-
--- NOTE | 2019-01-22 14:20 | NUR ---
DUE MEDS GIVEN, HR 85. RESP EVEN AND UNLABORED. CALL LIGHT WITHIN REACH. DENIES PAIN AT THIS TIME.
--- NOTE | 2019-01-22 16:14 | NUR ---
PT IS SITTING UP IN BED VISITING WITH FAMILY. RESP EVEN AND UNLABORED. NO DISTRESS NOTED. DENIES PAIN. NO HICCUPS NOTED AT THIS TIME. CALL LIGHT WITHIN REACH.
[2019-01-22 16:36] VITALS: BP 147/94
--- NOTE | 2019-01-22 17:13 | NUR ---
P.T. NOTES P.T. EVAL COMPLETED; REFER TO EVAL FOR DETAILS; NURSING TO AMB AD ELIZABETH.
--- NOTE | 2019-01-22 18:27 | NUR ---
PT IS AAOX4. RESP EVEN AND UNLABORED. REPORTED TO DR. FALL THAT PT HICCUPS HAVE RETURNED. THE STATED THORAZINE PRN X2 WILL ORDERED FOR HS PRN. PT MADE AWARE. TELE [address] READING NSR WITH PVCS AND PACS. IV CATH TO RFA PATENT WITH NO S/S OF INFECTION OR INFILTRATION. PT DENIES PAIN AT THIS TIME. CALL LIGHT WITHIN REACH. BED IN LOWEST POSITION. WILL ENDORSE ALL CARE TO NOC RN.
[2019-01-22 19:15] VITALS: BP 131/81
--- NOTE | 2019-01-22 19:15 | NUR ---
RECEIVED PT AWAKE ALERT AND VERBALLY RESPONSIVE.DENIES CHESTPAIN AT THIS TIME.HICCUPS STOPPED AFTER MEDICATION.BP 131/81 MMHG,HR 78.ABDOMEN SOFT AND NON-DISTENDED,ENCOURAGED TO CALL FOR ASSISTANCE AT ALL TIMES.WILL CONTINUE TO MONITOR.
--- NOTE | 2019-01-23 04:43 | NUR ---
PT SLEPT WELL ALL NIGHT.NO ASE NOTED FROM ZOSYN IV ATB.DENIES ANY NEED FOR THORAZINE FOR HIS HICCUPS.AMBULATED TO BR NEEDED.ALL NEEDS MET.WILL CONTINUE TO MONITOR.
[2019-01-23 05:54] VITALS: BP 138/83
[2019-01-23 07:02] LABS: ALKALINE PHOSPHATASE 137 U/L (46-116); AST/SGOT 146 U/L (15-37); BILIRUBIN TOTAL 1.3 mg/dL (0.20-1.00); CALCIUM 8.1 mg/dL (8.5-10.1); CARBON DIOXIDE 28.6 mmol/L (21-32); CHLORIDE SERUM 96 mmol/L (98-107); GFR1 > 60 mL/min; GLUCOSE SERUM 145 mg/dL (74-106); MAGNESIUM 1.7 mg/dL (1.8-2.4); PHOSPHOROUS 2.8 mg/dL (2.5-4.9); POTASSIUM SERUM 3.5 mmol/L (3.5-5.1); SODIUM SERUM 136 mmol/L (136-145); TOTAL PROTEIN, SERUM 6.7 g/dL (6.4-8.2)
[2019-01-23 07:15] LABS: ALBUMIN 2.9 g/dL (3.4-5.0)
[2019-01-23 07:16] LABS: ALT/SGPT 1919 U/L (16-63)
--- NOTE | 2019-01-23 07:40 | NUR ---
RECEIVED PT IN BED. ASSESSED AND DOCUMENTED. DENIES PAIN THIS TIME. SAFTEY PRECAUTIONS ARE IN PLACE. WILL MONITOR.
[2019-01-23 08:10] LABS: PLATELET COUNT 139 x10^3mcL (130-400)
[2019-01-23 08:13] LABS: BASOPHIL % 0 % (0-2)
[2019-01-23 08:46] VITALS: BP 143/85
--- NOTE | 2019-01-23 11:00 | NUR ---
PT AMBULATE TO THE RESTROOM, HAD A BM. AMBULATED WELL. DENIES ANY PAIN. SAFTEY PRECAUTIONS ARE IN PLACE.
[2019-01-23 12:23] VITALS: BP 134/64
--- NOTE | 2019-01-23 14:00 | NUR ---
PT RESTING IN BED COMFORTABLY. NO HICCUPS THIS TIME. STABLE.
--- NOTE | 2019-01-23 15:40 | NUR ---
Diet Education: Low fat diet education was provided along with NCM handouts. All questions were answered and pateint did not have any questions at this time.
--- NOTE | 2019-01-23 16:00 | NUR ---
PT RESTING IN BED COMFORYABLY. MOTHER AT BEDSIDE. NO HICCUPS NOTED THIS TIME. PT SAID HE GOT SOME EPISODES OF HICCUPS BUT BETTER TODAY. STABLE.
[2019-01-23 16:19] VITALS: BP 140/89
[2019-01-23] MEDS ORDERED: FER300 PO (16:53)
[2019-01-23] MEDS ORDERED: IND20 PO (16:54)
[2019-01-23] MEDS ORDERED: NOR10 PO (16:54)
[2019-01-23] MEDS ORDERED: HUMULIN R100 U/1 M1 SC (16:55)
[2019-01-23] MEDS ORDERED: BG FS (16:55)
[2019-01-23] MEDS ORDERED: PRI20 PO (16:55)
[2019-01-23] MEDS ORDERED: CHLORPROMAZINE25 M1 PO (16:56)
[2019-01-23 18:04] VITALS: BP 140/89
--- NOTE | 2019-01-23 18:48 | NUR ---
DISCHARGE INSTRUCTIONS AND PRESCRIPTIONS GIVEN. PB SIGNED AND SENT WITH PT. IV REMOVED AND DRESSING APPLIED. TELE REMOVED AND RETURNED. PT DENIES ANY PAIN. STABLE. MOTHR AT BEDSIDE. PT WANTED A T-SHIRT FROM DONATION BOX AND GIVEN FOR HE DOESNOT HAVE SHIRT. SENIOR ARCHITECT WHEELED PT DOWN TO LOBBY ACCOMPANIED WITH PT'S MOTHER. PT DC HOME.
== END 2019-01-23 18:45 | disposition home or self-care (01) | DRG 241 ==
LOC: ED 13:46 → IC 17:19 → DU 01-20 12:58
PROVIDERS: Emergency Medicine; Internal Medicine Gastroenterology; ADMIT Internal Medicine
PROC: 0W3P8ZZ Control Bleeding in Gastrointestinal Tract, Via Natural or Artificial Opening Endoscopic (ICD-10-PCS; principal; 2019-01-18 13:30)
DX: K26.0 Acute duodenal ulcer with hemorrhage (principal); I21.A1 Myocardial infarction type 2; K72.00 Acute and subacute hepatic failure without coma; D69.49 Other primary thrombocytopenia; K81.0 Acute cholecystitis; D62 Acute posthemorrhagic anemia; K22.10 Ulcer of esophagus without bleeding; E87.6 Hypokalemia; E11.65 Type 2 diabetes mellitus with hyperglycemia; T39.1X5A Adverse effect of 4-Aminophenol derivatives, initial encounter; F12.10 Cannabis abuse, uncomplicated; D68.4 Acquired coagulation factor deficiency; E87.1 Hypo-osmolality and hyponatremia; I10 Essential (primary) hypertension; R06.6 Hiccough; Z68.24 Body mass index [BMI] 24.0-24.9, adult; Y92.018 Other place in single-family (private) house as the place of occurrence of the external cause; Z79.84 Long term (current) use of oral hypoglycemic drugs
CPT/HCPCS: 36600; 43235; 82962; 83880; 84439; 87338; C9113; G0378; G0480; J0132; J0171; J0360; J1200; J1610; J1815; J1885; J1940; J2060; J2250; J2310; J2405; J2543; J2550; J2765; J3010; J3230; J3430; J3475; J3480; J3490; J7030; J7040; J7050; J8597; P9035; Q0092; Q0161; Q9967

== ENCOUNTER 2019-09-27 10:47 | Emergency (ER) | payer OTHER ==
[~2019-09-27] VITALS: Ht 182.9 cm; Wt 87.1 kg
[~2019-09-27 10:47] MED LIST: ASPIR 8181 MG PO; BACLOFEN20 MG PO; BG FS; CHLORPROMAZINE25 M1 PO; FER300 PO; HCTZ/LISINOPRIL1 TAB PO; HUMULIN R100 U/1 M1 SC; IND20 PO; LIPITOR40 MG PO; METFORMIN HYDR500 M1 PO; NOR10 PO; PRI20 PO
[2019-09-27 10:59] VITALS: Ht 182.9 cm; Wt 87.1 kg
[2019-09-27 14:41] VITALS: BP 150/105
== END 2019-09-27 14:41 | disposition home or self-care (01) ==
LOC: ED 10:47
DX: R20.2 Paresthesia of skin (principal); F17.210 Nicotine dependence, cigarettes, uncomplicated; I10 Essential (primary) hypertension; E11.9 Type 2 diabetes mellitus without complications; Z88.6 Allergy status to analgesic agent
CPT/HCPCS: 82962; 99406; Q0092

== ENCOUNTER 2019-10-17 03:12 | Emergency (ER) | payer OTHER ==
[~2019-10-17] VITALS: Ht 182.9 cm; Wt 90.7 kg
[2019-10-17 03:19] VITALS: Ht 182.9 cm; Wt 90.7 kg
[2019-10-17 06:15] VITALS: BP 146/97
== END 2019-10-17 06:15 | disposition home or self-care (01) ==
LOC: ED 03:12
DX: M54.41 Lumbago with sciatica, right side (principal); I10 Essential (primary) hypertension; E11.9 Type 2 diabetes mellitus without complications; Z88.5 Allergy status to narcotic agent; Z98.890 Other specified postprocedural states
CPT/HCPCS: J1885; J3010; Q0092

== ENCOUNTER 2019-10-28 03:18 | Emergency (ER) | payer OTHER ==
[~2019-10-28] VITALS: Ht 182.9 cm; Wt 90.7 kg
[2019-10-28 03:25] VITALS: Ht 182.9 cm; Wt 90.7 kg
[2019-10-28 05:21] VITALS: BP 160/100
== END 2019-10-28 05:21 | disposition home or self-care (01) ==
LOC: ED 03:18
DX: M54.42 Lumbago with sciatica, left side (principal); M54.41 Lumbago with sciatica, right side; I10 Essential (primary) hypertension; E11.9 Type 2 diabetes mellitus without complications; Z88.5 Allergy status to narcotic agent; Z98.890 Other specified postprocedural states
CPT/HCPCS: J1885; J3010; Q0092

== ENCOUNTER 2020-03-07 10:16 | Emergency (ER) | payer OTHER ==
[~2020-03-07] VITALS: Ht 182.9 cm; Wt 87.1 kg
[2020-03-07 10:42] VITALS: Ht 182.9 cm; Wt 87.1 kg
[2020-03-07 11:54] LABS: CALCIUM 9.2 mg/dL (8.5-10.1); CHLORIDE SERUM 101 mmol/L (98-107); CREATININE SERUM 0.9 mg/dL (0.7-1.3); GFR1 > 60 mL/min; GLUCOSE SERUM 154 mg/dL (74-106); POTASSIUM SERUM 4.6 mmol/L (3.5-5.1); SODIUM SERUM 137 mmol/L (136-145)
[2020-03-07 11:55] LABS: microscopic required? YES; urine erythrocyte 3+ (NEGATIVE)
[2020-03-07 11:58] LABS: ALBUMIN 4.2 g/dL (3.4-5.0); ALKALINE PHOSPHATASE 114 U/L (46-116); AST/SGOT 32 U/L (15-37); BILIRUBIN TOTAL 0.53 mg/dL (0.20-1.00); LIPASE 58 IU/L (73-393)
[2020-03-07 11:59] LABS: TOTAL PROTEIN, SERUM 8.4 g/dL (6.4-8.2)
[2020-03-07 12:00] LABS: BASOPHIL % 1.9 % (0-2)
[2020-03-07 12:01] LABS: RED CELL DISTRIBUTION WIDTH 15.1 % (11.5-14.5)
[2020-03-07 12:43] LABS: PLATELET COUNT 591 x10^3mcL (130-400)
[2020-03-07 12:50] LABS: ALT/SGPT 17 U/L (16-63)
[2020-03-07 14:14] VITALS: BP 133/83
== END 2020-03-07 14:14 | disposition home or self-care (01) ==
LOC: ED 10:16
PROVIDERS: Emergency Medicine
DX: K57.92 Diverticulitis of intestine, part unspecified, without perforation or abscess without bleeding (principal); N39.0 Urinary tract infection, site not specified; D64.9 Anemia, unspecified; I10 Essential (primary) hypertension; E11.9 Type 2 diabetes mellitus without complications; Z88.5 Allergy status to narcotic agent
CPT/HCPCS: J1885; J2543; J3010